=== PATIENT | male | born 1960 | race Caucasian/White ===

== ENCOUNTER 2020-10-13 03:12 | Inpatient (IN) | payer BC, OTHER ==
--- OUTSIDE RECORDS SUMMARY | 2020-10-13 03:14 | XMS REPORT | Clinical Summary ---
:1960 Author Organization [facility] Address [address] [place] [address] Care Team Providers Name Role Phone Rajan Torres MD Primary Care Provider Allergies No Known Active Allergies Medications Medication Sig Dispensed Refills Start Date End Date Status sotalol (BETAPACE) Take 1 tablet 0 11/19/2018 Active 160 MG tablet by mouth 2 (two) times a day. warfarin (COUMADIN) Take 5 mg by 0 10/22/2018 Active 5 MG tablet mouth daily. aspirin (ECOTRIN) Take 81 mg by 0 Active 81 MG enteric mouth daily. coated tablet fluticasone 2 sprays by 0 Active (FLONASE) 50 Each Nare mcg/actuation nasal route as spray needed for rhinitis. loratadine Take 10 mg by 0 Activ e (CLARITIN) 10 mg mouth daily. tablet atorvastatin Take 80 mg by 0 Act bony (LIPITOR) 80 MG mouth daily. tablet pantoprazole Take 40 mg by 0 Act bony (PROTONIX) 40 MG EC mouth daily. tablet ramipril (ALTACE) Take 10 mg by 0 Active 10 MG capsule mouth daily. pioglitazone TAKE 1 TABLET 30 tablet 3 08/28/2020 Ac tive (ACTOS) 30 MG BY MOUTH 1 tablet TIME EACH DAY pioglitazone Take 1 tablet 30 tablet 11 09/19/2019 08/28/2020 D iscontinued (ACTOS) 30 MG (30 mg total) tablet by mouth daily. Active Problems Not on file Encounters Date Type Specialty Care Team Description 08/28/2020 Refill Neurology Alex Davila MD after 10/13/2019 Family History Medical History Relation Name Comments Emphysema Father Heart attack Father Hypertension Mother Scoliosis Mother Relation Name Status Comments Father Mother Alive Social History Tobacco Use Types Packs/Day Years Used Date Former Smoker 3 Quit: 1982 Smokeless Tobacco: Former User Alcohol Use Drinks/Week oz/Week Comments No Alcohol Habits Answer Date Recorded How often do you have a drink containing alcohol? Never 12/12/2018 How many drinks containing alcohol do you have on a typical Not asked day when you are drinking? How often do you have six or more drinks on one occasion? 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
--- OUTSIDE RECORDS SUMMARY | 2020-10-13 03:14 | XMS REPORT | Continuity of Care Document ---
:1960 Author Organization [facility] t Address [address] [place] [address] Care Team Providers Name Role Phone Brian DE LA CRUZ, J. Primary Care Physician Lola DE LA CRUZ Attending Clinician Payers Payer Name Policy Type Policy Effective Date Expiration Date [facility] ce Number BCBSBCBS CHOICE [id number] 2015 [place] PPO/FEDERAL 00:00:00 Yarsanism EMPL [id number] 2015-Pres[place] tPPO Problems This patient has no known problems. Allergies, Adverse Reactions, Alerts This patient has no known allergies or adverse reactions. Family History Family Member Diagnosis Comments Start Date Stop Date Source Natural father Emphysema [facility] Natural father Heart attack [place] Yarsanism Natural mother Hypertension [place] Yarsanism Natural mother Scoliosis [facility] Social History Social Habit Start Date Stop Date Quantity Comments Source History of tobacco Current smoker [facility] Yarsanism use History [facility] Meth odist Alcohol Std Drinks History [facility] Meth odist Alcohol Binge Sex Assigned At [facility] ethodist Tobacco use and 2019-03-20 2019-03-20 Former user [place] Yarsanism exposure 00:00:00 00:00:00 Alcohol intake 2019-03-20 2019-03-20 Current [facility] 00:00:00 00:00:00 non-drinker of alcohol (finding) History SDNM 2018-12-12 2018-12-12 1 [place] [facility] Alcohol Frequency 00:00:00 00:00:00 Smoking Status Start Date Stop Date Source Former smoker 2019-03-20 00:00:00 2019-03-20 00:00:00 Denzel Clark Medications Ordered Filled Start Stop Current Ordering Indication Dosage Frequency Signature Comments Components Source Medication Medication Date Date Medication? Clinician (SIG) Name Name monique 2019-11 Yes TAKE 1 [place] (ACTOS) 0-02 TABLET BY Metho di 30 MG 00:00: MOUTH 1 st tablet 00 TIME EACH DAY aspirin 2018-11 Yes 81mg QD Take 81 mg [place] (ECOTRIN) 0-24 by mouth Method i 81 MG 09:31: daily. st enteric 19 coated tablet fluticasone 2018-11 Yes 2{spray 2 sprays [place] (FLONASE) 0-24 } by Each Methodi 50 09:31: Nare route st mcg/actuati 19 as needed on nasal for spray rhinitis. loratadine 2018-11 Yes 10mg QD Take 10 mg [place] (CLARITIN) 0-24 by mouth Metho di 10 mg 09:31: daily. st tablet 19 atorvastati 2018-11 Yes 80mg QD Take 80 mg [place] n (LIPITOR) 0-24 by mouth Meth caitlin 80 MG 09:31: daily. st tablet 19 pantoprazol 2018-11 Yes 40mg QD Take 40 mg [place] e 0-24 by mouth Methodi (PROTONIX) 09:31: daily. st 40 MG EC 19 tablet ramipril 2018-11 Yes 10mg QD Take 10 mg [place] (ALTACE) 10 0-24 by mouth Meth caitlin MG capsule 09:31: daily. st 19 pioglitazon 2018-11 2020- No 30mg QD Take 1 [place] e (ACTOS) 0-24 10-02 tablet (30 Met hodi 30 MG 00:00: 00:00 mg total) st tablet 00 :00 by mouth daily. sotalol 2017-11 Yes 1{tbl} Q.5D Take 1 [place] (BETAPACE) 2-24 tablet by Meth caitlin 160 MG 00:00: mouth 2 st tablet 00 (two) times a day. warfarin 2017-11 Yes 5mg QD Take 5 mg [place] (COUMADIN) 1-26 by mouth Metho di 5 MG tablet 00:00: daily. st 00 Procedures This patient has no known procedures. Plan of Care Planned Activity Planned Date Details Comments Source Future Scheduled 2020-06-27 INFLUENZA VACCINE [facility] Yarsanism Test 00:00:00 [code = INFLUENZA VACCINE] Future Scheduled 2012 COLONOSCOPY SCREENING Jeff baltazar Yarsanism Test 00:00:00 [code = COLONOSCOPY SCREENING] Future Scheduled 2012 SHINGLES VACCINES [facility] Test 00:00:00 (#1) [code = SHINGLES VACCINES (#1)] Results Test Description Test Time Test Comments Results Result Comments Source Prothrombin Time and INR 2019-10-23 21:11:19 Test Item Value Reference Range Interpretation Comme nts Prothrombin Time (test code = Prothrombin Time) 43.8 seconds 9.8-13 .4 H INR (test code = INR) 3.6 ratio 0.6-1.2 H Prothrombin Time and [id number] 22:23:47 Test Item Value Reference Range Interpretation Comments Prothrombin Time (test code = 35.8 seconds 9.8-13.4 H Prothrombin Time) INR (test code = INR) 3.0 ratio 0.6-1.2 H Prothrombin Time and [id number] 19:37:16 Test Item Value Reference Range Interpretation Comments Prothrombin Time (test 77.0 seconds 9.8-13.4 H code = Prothrombin Time) INR (test code = INR) 6.3 ratio 0.6-1.2 Critic al results called to Dr. Jacob alva at 09/27/2019 19:37:02 CDT by mxt. Read back and verified? yes Prothrombin Time and [id number] 20:54:22 Test Item Value Reference Range Interpretation Comments Prothrombin Time (test code = 28.4 seconds 9.8-13.4 H Prothrombin Time) INR (test code = INR) 2.4 ratio 0.6-1.2 H Prothrombin Time and [id number] 20:41:58 Test Item Value Reference Range Interpretation Comments Prothrombin Time (test code = 40.7 seconds 9.8-13.4 H Prothrombin Time) INR (test code = INR) 3.4 ratio 0.6-1.2 H Prothrombin Time and [id number] 18:57:08 Test Item Value Reference Range Interpretation Comments Prothrombin Time (test code = 19.8 seconds 9.8-13.4 H Prothrombin Time) INR (test code = INR) 1.7 ratio 0.6-1.2 H Prothrombin Time and [id number] 21:56:46 Test Item Value Reference Range Interpretation Comments Prothrombin Time (test 57.5 seconds 9.8-13.4 H code = Prothrombin Time) INR (test code = INR) 4.7 ratio 0.6-1.2 Critic al results called to Dr. Jacob alva at 08/01/2019 21:56:35 CDT by mxt. Read back and verified? yes Prothrombin Time and [id number] 07:16:10 Test Item Value Reference Range Interpretation Comments Prothrombin Time 59.9 seconds 9.8-13.4 H (test code = Prothrombin Time) INR (test code = INR) 4.9 ratio 0.6-1.2 Critic al results called to Dr. Dang Md at 07/19/2019 07:15 :41 CDT by . Faith d back and verifi ed? [email or web address] Prothrombin Time and [id number] 23:27:47 Test Item Value Reference Range Interpretation Comments Prothrombin Time (test code = 47.9 seconds 9.8-13.4 H Prothrombin Time) INR (test code = INR) 4.0 ratio 0.6-1.2 H Prothrombin Time and [id number] 20:26:32 Test Item Value Reference Range Interpretation Comments Prothrombin Time (test code = 36.1 seconds 9.8-13.4 H Prothrombin Time) INR (test code = INR) 3.0 ratio 0.6-1.2 H Prothrombin Time and [id number] 22:05:03 Test Item Value Reference Range Interpretation Comments Prothrombin Time (test code = 50.9 seconds 9.8-13.4 H Prothrombin Time) INR (test code = INR) 4.2 ratio 0.6-1.2 H Prothrombin Time and [id number] 22:37:19 Test Item Value Reference Range Interpretation Comments Prothrombin Time (test code = 43.1 seconds 9.8-13.4 H Prothrombin Time) INR (test code = INR) 3.6 ratio 0.6-1.2 H Prothrombin Time and [id number] 08:43:30 Test Item Value Reference Range Interpretation Comments Prothrombin Time 57.8 seconds 9.8-13.4 H Collection date/time (test code = has been modifi ed Prothrombin Time) to: 16:55:00. Prev ious collection date/time: 16:55:00. INR (test code = INR) 4.8 ratio 0.6-1.2 Critic al results called to Dr. Jacob alva at 04/25/2019 21:22:45 CDT by mxt. Read back and verified? yesCritical res ults called to Dr. Jacob alva at 04/25/2019 21:22:45 CDT by mxt. Read back and verified? yes Collection date /time has been modifi ed to: 16:55:00. Prev ious collection date/time: 16:55:00. Prothrombin Time and [id number] 21:22:57 Test Item Value Reference Range Interpretation Comments Prothrombin Time (test 57.8 seconds 9.8-13.4 H code = Prothrombin Time) INR (test code = INR) 4.8 ratio 0.6-1.2 Critic al results called to Dr. Jacob alva at 04/25/2019 21:22:45 CDT by mxt. Read back and verified? yes Prothrombin Time and [id number] 20:01:46 Test Item Value Reference Range Interpretation Comments Prothrombin Time (test code = 41.1 seconds 9.8-13.4 H Prothrombin Time) INR (test code = INR) 3.4 ratio 0.6-1.2 H
[2020-10-13] MEDS ORDERED: MORPHINE 4 MG/ML SYR ONE (03:47)
[2020-10-13] MEDS ORDERED: ONDANSETRON 4 MG/2 ML VIAL ONE ×4 (03:47→16:05)
[2020-10-13] MEDS ORDERED: NA CHLORIDE 0.9% 1,000 ML ONE ×4 (03:47→13:26)
[2020-10-13] MEDS ORDERED: FAMOTIDINE 20 MG/2 ML VIAL IV ONE (03:57)
[2020-10-13 04:07] LABS: Protime INR 3.75
[2020-10-13] MEDS ORDERED: HYDROMORPHONE HCL 1 MG/ML INJ ONE (04:11)
[2020-10-13 04:25] LABS: Absolute Lymphocytes (CBC) 2.7 K/uL (0.7-4.9); Basophils % 1.1 % (0-1.3); Hematocrit 44.4 % (39.6-49.0); Lymphocytes % 40.5 % (15.3-44.8); MPV 9.9 fL (7.6-11.3); RBC Red Blood Cell Count 5.07 M/uL (4.33-5.43)
[2020-10-13 04:37] LABS: ALT/SGPT 31 U/L (12-78); AST/SGOT 27 U/L (15-37); Albumin 3.7 g/dL (3.4-5.0); Alkaline Phosphatase 118 U/L (45-117); BUN Blood Urea Nitrogen 15 mg/dL (7-18); Bicarbonate 31 mmol/L (21-32); Bilirubin Direct < 0.1 mg/dL (0-0.2); Bilirubin Total 0.4 mg/dL (0.2-1.0); Glucose Level 131 mg/dL (74-106); Lipase 156 U/L (73-393); NT PRO-BNP 412 pg/mL (<125); Potassium 4.2 mmol/L (3.5-5.1); Protein, Total 7.7 g/dL (6.4-8.2); Sodium Level 141 mmol/L (136-145); Troponin (Emerg Dept Use Only) < 0.02 ng/mL (0.0-0.045)
[2020-10-13] MEDS ORDERED: PROMETHAZINE INJ 25 MG/ML AMP ONE ×2 (04:59→16:14)
[2020-10-13] MEDS ORDERED: HYDROMORPHONE HCL 0.5 MG/0.5 ML INJ ONE (05:34)
--- NOTE | 2020-10-13 06:12 | EDPHYS ---
Physician Documentation [facility] Name: Johan Hu Age: 60 yrs Sex: Male : 1960 Arrival Date: 10/13/2020 Time: 03:15 Bed 7 Private MD: ED Physician Marcus Avila HPI: 10/13 03:37 This 60 yrs old Male presents to ER via Ambulatory with complaints of gary Abdominal Pain. 03:37 The patient presents with abdominal pain in the upper abdomen, abdominal distention in gary the upper abdomen, in the lower abdomen. Onset: The symptoms/episode began/occurred just prior to arrival. The symptoms do not radiate. Associated signs and symptoms: none. The symptoms are described as crampy. Modifying factors: The symptoms are alleviated by nothing, the symptoms are aggravated by nothing. Severity of pain: At its worst the pain was moderate in the emergency department the pain is unchanged. The patient has not experienced similar symptoms in the past. Historical: - Allergies: 03:26 No Known Allergies; rv - PMHx: 03:26 Hypertension; CVA; rv - PSHx: 03:26 HEART VALVE SURGERY; Hernia repair; rv - Immunization history:: Adult Immunizations up to date. - Social history:: Smoking status: Patient denies any tobacco usage or history of. - Family history:: not pertinent. ROS: 03:37 Constitutional: Negative for fever, chills, and weight loss, Eyes: Negative for injury, gary pain, redness, and discharge, ENT: Negative for injury, pain, and discharge, Neck: Negative for injury, pain, and swelling, Cardiovascular: Negative for chest pain, palpitations, and edema, Respiratory: Negative for shortness of breath, cough, wheezing, and pleuritic chest pain, Back: Negative for injury and pain, : Negative for injury, bleeding, discharge, and swelling, MS/Extremity: Negative for injury and deformity, Skin: Negative for injury, rash, and discoloration, Neuro: Negative for headache, weakness, numbness, tingling, and seizure, Psych: Negative for depression, anxiety, suicide ideation, homicidal ideation, and hallucinations, Allergy/Immunology: Negative for hives, rash, and allergies, Endocrine: Negative for neck swelling, polydipsia, polyuria, polyphagia, and marked weight changes, Hematologic/Lymphatic: Negative for swollen nodes, abnormal bleeding, and unusual bruising. 03:37 Abdomen/GI: Positive for abdominal pain, nausea, of the right upper quadrant and left upper quadrant. Exam: 03:37 Constitutional: This is a well developed, well nourished patient who is awake, alert, gary and in no acute distress. Head/Face: Normocephalic, atraumatic. Eyes: Pupils equal round and reactive to light, extra-ocular motions intact. Lids and lashes normal. Conjunctiva and sclera are non-icteric and not injected. Cornea within normal limits. Periorbital areas with no swelling, redness, or edema. ENT: Nares patent. No nasal discharge, no septal abnormalities noted. Tympanic membranes are normal and external auditory canals are clear. Oropharynx with no redness, swelling, or masses, exudates, or evidence of obstruction, uvula midline. Mucous membranes moist. Neck: Trachea midline, no thyromegaly or masses palpated, and no cervical lymphadenopathy. Supple, full range of motion without nuchal rigidity, or vertebral point tenderness. No Meningismus. Chest/axilla: Normal chest wall appearance and motion. Nontender with no deformity. No lesions are appreciated. Cardiovascular: Regular rate and rhythm with a normal S1 and S2. No gallops, murmurs, or rubs. Normal PMI, no JVD. No pulse deficits. Respiratory: Lungs have equal breath sounds bilaterally, clear to auscultation and percussion. No rales, rhonchi or wheezes noted. No increased work of breathing, no retractions or nasal flaring. Back: No spinal tenderness. No costovertebral tenderness. Full range of motion. Male : Normal genitalia with no discharge or lesions. Skin: Warm, dry with normal turgor. Normal color with no rashes, no lesions, and no evidence of cellulitis. MS/ Extremity: Pulses equal, no cyanosis. Neurovascular intact. Full, normal range of motion. Neuro: Awake and alert, GCS 15, oriented to person, place, time, and situation. Cranial nerves II-XII grossly intact. Motor strength 5/5 in all extremities. Sensory grossly intact. Cerebellar exam normal. Normal gait. Psych: Awake, alert, with orientation to person, place and time. Behavior, mood, and affect are within normal limits. 03:37 Abdomen/GI: Inspection: distension, Bowel sounds: active, Palpation: moderate abdominal tenderness, in the right upper quadrant and left upper quadrant. 03:50 ECG was reviewed by the Attending Physician. gary Vital Signs: 03:24 Weight 113.4 kg; Height 6 ft. 3 in. (190.50 cm); rv 03:31 Pulse 75; Resp 20; Temp 97.5; Pulse Ox 100% ; rv 04:39 BP 153 / 93; Pulse 55; Resp 16; Pulse Ox 98% ; rr5 05:26 BP 156 / 93; Pulse 64; Resp 16; Pulse Ox 98% on R/A; rv 06:28 BP 153 / 101; Pulse 65; Resp 16; Pulse Ox 100% on R/A; rv 08:06 BP 116 / 80; Pulse 79; Resp 16; Pulse Ox 98% on R/A; ph 09:29 BP 131 / 80; Pulse 81; Resp 15; Pulse Ox 100% on R/A; hb 03:24 Body Mass Index 31.25 (113.40 kg, 190.50 cm) rv MDM: 03:29 Patient medically screened. gary 03:40 Differential diagnosis: AAA, bowel obstruction, diverticulitis, non-specific abd pain, gary Peptic Ulcer Disease, Perf. Duodenal Ulcer, Perf. Gastric Ulcer, urinary tract infection. Data reviewed: vital signs, nurses notes, lab test result(s), EKG, radiologic studies, CT scan, plain films. 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 Test interpretation: by ED physician or midlevel provider: ECG, plain radiologic studies. Counseling: I had a detailed discussion with the patient and/or guardian regarding: the historical points, exam findings, and any diagnostic results supporting the discharge/admit diagnosis, lab results, radiology results. 06:12 Physician consultation: Francisco Horton MD and will see patient in inpatient room, ABX, gary NO ffp, yes NG to low intermittent suction, admit to me, dr horton. 10/13 03:36 Order name: Basic Metabolic Panel [facility] 10/13 03:36 Order name: CBC with Diff; Complete Time: 04:46 [facility] 10/13 03:36 Order name: LFT's; Complete Time: 04:46 [facility] 10/13 03:36 Order name: Magnesium; Complete Time: 04:46 [facility] 10/13 03:36 Order name: NT PRO-BNP; Complete Time: 04:46 [facility] 10/13 03:36 Order name: PT-INR; Complete Time: 04:46 [facility] 10/13 03:36 Order name: Troponin (emerg Dept Use Only); Complete Time: 04:46 [facility] 10/13 03:36 Order name: XRAY Chest (1 view) [facility] 10/13 03:36 Order name: Lipase; Complete Time: 04:46 [facility] 10/13 03:36 Order name: Urine Culture [facility] 10/13 03:36 Order name: CT Abd/Pelvis - PO and IV Contrast [facility] 10/13 03:37 Order name: Basic Metabolic Panel; Complete Time: 04:46 [facility] 10/13 06:01 Order name: Type And Screen; Complete Time: 07:45 [facility] 10/13 09:34 Order name: ABO/RH no charge [facility] 10/13 03:36 Order name: EKG; Complete Time: 03:37 [facility] 10/13 03:36 Order name: Cardiac monitoring; Complete Time: 03:42 [facility] 10/13 06:38 Order name: Abdomen 1 View (KUB) XRAY [facility] 10/13 07:50 Order name: RAD [facility] 10/13 03:36 Order name: IV Saline Lock; Complete Time: 03:42 [facility] 10/13 03:36 Order name: Labs collected and sent; Complete Time: 03:41 [facility] 10/13 03:36 Order name: O2 Per Protocol; Complete Time: 03:41 [facility] 10/13 03:36 Order name: O2 Sat Monitoring; Complete Time: 03:41 [facility] 10/13 06:07 Order name: NG Tube: viscus lidocaine, lis; Complete Time: 06:19 [facility] 10/13 06:26 Order name: IV Saline Lock - Large Bore; Complete Time: 06:29 [facility] 10/13 07:18 Order name: Labs - recollect needed: collect abo/rh no charge; Complete Time: 08:54 10/13 07:44 Order name: Misc. Order: advance ng tube 10 cm; Complete Time: 08:54 [facility] EC:50 Rate is 56 beats/min. Rhythm is regular. QRS [place] is Normal. CT interval is normal. QRS gary interval is normal. QT interval is normal. No Q waves. T waves are Normal. No ST changes noted. Clinical impression: Sinus bradycardia and No evidence of ischemia. Interpreted by me. Reviewed by me. Administered Medications: 03:41 Drug: NS 0.9% 1000 ml Route: IV; Rate: 1 bolus; Site: right antecubital; rv 05:24 Follow up: IV Status: Completed infusion; IV Intake: 1000ml rv 03:41 Drug: morphine 4 mg {Note: RASS 0.} Route: IVP; Site: right antecubital; rv 05:23 Follow up: Response: No adverse reaction; Pain is unchanged, physician notified; RASS: rv Alert and Calm (0) 03:41 Drug: Zofran (Ondansetron) 4 mg Route: IVP; Site: right antecubital; rv 05:23 Follow up: Response: No adverse reaction; Nausea unchanged rv 03:45 Drug: Pepcid 20 mg Route: IVP; Site: right antecubital; rv 04:00 Drug: Zofran (Ondansetron) 4 mg Route: IVP; Site: right antecubital; rv 05:23 Follow up: Response: Nausea unchanged rv 04:00 Drug: Dilaudid 1 mg {Note: RASS 0.} Route: IVP; Site: right antecubital; rv 05:23 Follow up: Response: No adverse reaction; Pain is decreased; RASS: Alert and Calm (0) rv 04:44 Drug: NS 0.9% 1000 ml Route: IV; Rate: 1 bolus; Site: right antecubital; rv 06:29 Follow up: IV Status: Completed infusion; IV Intake: 1000ml rv 04:48 Drug: Phenergan 12.5 mg Route: IVP; Site: right antecubital; rv 05:24 Follow up: Response: No adverse reaction; Nausea is decreased rv 05:23 Drug: Dilaudid 0.5 mg Route: IVP; Site: right antecubital; rv 06:29 Follow up: Response: No adverse reaction; Marked relief of symptoms; Pain is decreased; rv RASS: Light sedation (-2) 06:21 Drug: Zosyn 3.375 grams Route: IVPB; Infused Over: 60 mins; Site: right antecubital; rv 06:29 Drug: NS 0.9% 1000 ml Route: IV; Rate: 125 ml/hr; Site: right antecubital; rv Disposition: 10/13/20 06:12 Hospitalization ordered by Francisco Horton for Inpatient Admission. Preliminary diagnosis are Other intestinal obstruction - high grade small bowel obstruction, internal hernia,ischemic bowel, Lower abdominal pain, unspecified, Coagulation defect, unspecified - coumadin toxic 3.75 INR. - Bed requested for DAY SURGERY OTHER. - Status is Inpatient Admission. hb - Condition is Fair. - Problem is new. - Symptoms are unchanged. Signatures: Dispatcher [employer] EDMS Radha Montelongo bd Marcus Avila MD MD cha Baxter, Heather, RN RN Mikey Bennett RN RN rv Corrections: (The following items were deleted from the chart) 09:01 06:12 Hospitalization Ordered by Francisco Horton MD for Inpatient Admission. Preliminary bd diagnosis is Other intestinal obstruction - high grade small bowel obstruction, internal hernia,ischemic bowel; Lower abdominal pain, unspecified; Coagulation defect, unspecified - coumadin toxic 3.75 INR. Bed requested for Telemetry/MedSurg (Inpatient). Status is Inpatient Admission. Condition is Fair. Problem is new. Symptoms are unchanged. gary 09:55 09:01 10/13/2020 06:12 Hospitalization Ordered by Francisco Horton MD for Inpatient bd Admission. Preliminary diagnosis is Other intestinal obstruction - high grade small bowel obstruction, internal hernia,ischemic bowel; Lower abdominal pain, unspecified; Coagulation defect, unspecified - coumadin toxic 3.75 INR. Bed requested for [facility] ER HOLD. Status is Inpatient Admission. Condition is Fair. Problem is new. Symptoms are unchanged. bd 09:56 09:55 10/13/2020 06:12 Hospitalization Ordered by Francisco Horton MD for Inpatient hb Admission. Preliminary diagnosis is Other intestinal obstruction - high grade small bowel obstruction, internal hernia,ischemic bowel; Lower abdominal pain, unspecified; Coagulation defect, unspecified - coumadin toxic 3.75 INR. Bed requested for DAY SURGERY OTHER. Status is Inpatient Admission. Condition is Fair. Problem is new. Symptoms are unchanged. bd
--- NOTE | 2020-10-13 06:12 | ER ---
Nurse's Notes [facility] Name: Johan Hu Age: 60 yrs Sex: Male : 1960 Arrival Date: 10/13/2020 Time: 03:15 Bed 7 Private MD: Diagnosis: Other intestinal obstruction-high grade small bowel obstruction, internal hernia,ischemic bowel;Lower abdominal pain, unspecified;Coagulation defect, unspecified-coumadin toxic 3.75 INR Presentation: 10/13 03:24 Chief complaint: Patient states: ABDOMINAL PAIN, EPIGASTRIC AREA. WOKE UP AT 0230, WITH rv KNIFE LIKE PAIN, ABDOMEN, WITH NAUSEA AND VOMITING. DENIES FEVER, COUGH. Coronavirus screen: Client denies travel out of the [place] in the last 14 days. Coronavirus screen: At this time, the client does not indicate any symptoms associated with coronavirus-19. Ebola Screen: No symptoms or risks identified at this time. Initial Sepsis Screen: Does the patient meet any 2 criteria?. Risk Assessment: Do you want to hurt yourself or someone else? Patient reports no desire to harm self or others. Onset of symptoms was October 13, 2020 at 02:30. 03:24 Method Of Arrival: Ambulatory rv 03:24 Acuity: NADJA 3 rv 05:26 Initial Sepsis Screen: Does the patient have a suspected source of infection? No. rv Patient's initial sepsis screen is negative. Triage Assessment: 03:26 General: Appears uncomfortable, Behavior is calm, cooperative. Pain: Complains of pain rv in abdomen. Pain: Quality of pain is described as sharp, stabbing. EENT: No signs and/or symptoms were reported regarding the EENT system. Neuro: Level of Consciousness is awake, alert, obeys commands, Oriented to person, place, time, situation. Cardiovascular: Patient's skin is warm and dry. Respiratory: Airway is patent Respiratory effort is even, unlabored, Breath sounds are clear bilaterally. GI: Abdomen is round non-distended, Pt is actively vomiting bile, Bowel sounds present X 4 quads. Derm: Skin is intact. Historical: - Allergies: 03:26 No Known Allergies; rv - PMHx: 03:26 Hypertension; CVA; rv - PSHx: 03:26 HEART VALVE SURGERY; Hernia repair; rv - Immunization history:: Adult Immunizations up to date. - Social history:: Smoking status: Patient denies any tobacco usage or history of. - Family history:: not pertinent. Screenin:27 Abuse screen: Denies threats or abuse. Denies injuries from another. Nutritional rv screening: No deficits noted. Tuberculosis screening: No symptoms or risk factors identified. Fall Risk None identified. Assessment: 03:28 GI: Abd is soft and non tender X 4 quads. rv 05:24 Reassessment: patient is back from CT scan. reassessed by Dr Avila at bedside. rv nausea decreased. pain is unchanged. received new orders. awaiting CT scan result. given Dilaudid as ordered. patient is comfortable laying on the bed. vital signs stable. 07:00 Reassessment: Patient appears in no apparent distress at this time. Patient and/or ph family updated on plan of care and expected duration. Pain level reassessed. Patient is alert, oriented x 3, equal unlabored respirations, skin warm/dry/pink. Family at bedside. 08:00 Reassessment: Patient appears in no apparent distress at this time. Patient and/or hb family updated on plan of care and expected duration. Pain level reassessed. Patient is alert, oriented x 3, equal unlabored respirations, skin warm/dry/pink. 09:00 Reassessment: Patient appears in no apparent distress at this time. Patient and/or hb family updated on plan of care and expected duration. Pain level reassessed. Patient is alert, oriented x 3, equal unlabored respirations, skin warm/dry/pink. 09:01 Reassessment: Dr. Herrera at bedside. hb Vital Signs: 03:24 Weight 113.4 kg; Height 6 ft. 3 in. (190.50 cm); rv 03:31 Pulse 75; Resp 20; Temp 97.5; Pulse Ox 100% ; rv 04:39 BP 153 / 93; Pulse 55; Resp 16; Pulse Ox 98% ; rr5 05:26 BP 156 / 93; Pulse 64; Resp 16; Pulse Ox 98% on R/A; rv 06:28 BP 153 / 101; Pulse 65; Resp 16; Pulse Ox 100% on R/A; rv 08:06 BP 116 / 80; Pulse 79; Resp 16; Pulse Ox 98% on R/A; ph 09:29 BP 131 / 80; Pulse 81; Resp 15; Pulse Ox 100% on R/A; hb 03:24 Body Mass Index 31.25 (113.40 kg, 190.50 cm) rv ED Course: 03:15 Patient arrived in ED. mr 03:18 Mikey Bennett, RN is Primary Nurse. rv 03:25 Triage completed. rv 03:27 Arm band placed on right wrist. Patient placed in the treatment room, on a stretcher, rv Patient notified of wait time. 03:28 Patient has correct armband on for positive identification. Placed in gown. Bed in low rv position. Call light in reach. Side rails up X 1. Pulse ox on. NIBP on. 03:29 Marcus Avila MD is Attending Physician. gary 03:30 Inserted saline lock: 20 gauge in right antecubital area, using aseptic technique. [id number] Blood collected. 05:31 CT Abd/Pelvis - PO and IV Contrast In Process Unspecified. EDMS 06:08 Francisco Herrera MD is Hospitalizing Provider. gary 06:09 XRAY Chest (1 view) In Process Unspecified. EDMS 06:22 NGT: inserted 14 Fr. via right nare. verified placement of air over stomach, verified rv return of gastric contents, to intermittent suction. Patient tolerated well. Administered Medications: 03:41 Drug: NS 0.9% 1000 ml Route: IV; Rate: 1 bolus; Site: right antecubital; rv 05:24 Follow up: IV Status: Completed infusion; IV Intake: 1000ml rv 03:41 Drug: morphine 4 mg {Note: RASS 0.} Route: IVP; Site: right antecubital; rv 05:23 Follow up: Response: No adverse reaction; Pain is unchanged, physician notified; RASS: rv Alert and Calm (0) 03:41 Drug: Zofran (Ondansetron) 4 mg Route: IVP; Site: right antecubital; rv 05:23 Follow up: Response: No adverse reaction; Nausea unchanged rv 03:45 Drug: Pepcid 20 mg Route: IVP; Site: right antecubital; rv 04:00 Drug: Zofran (Ondansetron) 4 mg Route: IVP; Site: right antecubital; rv 05:23 Follow up: Response: Nausea unchanged rv 04:00 Drug: Dilaudid 1 mg {Note: RASS 0.} Route: IVP; Site: right antecubital; rv 05:23 Follow up: Response: No adverse reaction; Pain is decreased; RASS: Alert and Calm (0) rv 04:44 Drug: NS 0.9% 1000 ml Route: IV; Rate: 1 bolus; Site: right antecubital; rv 06:29 Follow up: IV Status: Completed infusion; IV Intake: 1000ml rv 04:48 Drug: Phenergan 12.5 mg Route: IVP; Site: right antecubital; rv 05:24 Follow up: Response: No adverse reaction; Nausea is decreased rv 05:23 Drug: Dilaudid 0.5 mg Route: IVP; Site: right antecubital; rv 06:29 Follow up: Response: No adverse reaction; Marked relief of symptoms; Pain is decreased; rv RASS: Light sedation (-2) 06:21 Drug: Zosyn 3.375 grams Route: IVPB; Infused Over: 60 mins; Site: right antecubital; rv 06:29 Drug: NS 0.9% 1000 ml Route: IV; Rate: 125 ml/hr; Site: right antecubital; rv Intake: 05:24 IV: 1000ml; Total: 1000ml. rv 06:29 IV: 1000ml; Total: 2000ml. rv Outcome: 06:12 Decision to Hospitalize by Provider. [facility] 09:56 Patient left the ED. Signatures: Dispatcher [employer] Marcus Rollins MD MD cha Rivera, Julia mr BrantleyJessica RN RN Roya Henderson RN RN Lakshmi Hoffman [email or web address] Mikey Bennett RN RN Felipe Vasquez RN RN [id number]
[2020-10-13] MEDS ORDERED: LIDOCAINE VISCOUS 2% SOLN 15 ML UDC ONE (06:22)
[2020-10-13] MEDS ORDERED: PIPER/TAZO/NS 3.375gm 3.375 GM/100 ML BAG ONE ×2 (06:33→17:56)
--- NOTE | 2020-10-13 07:49 | RAD REPORT ---
EXAM DESCRIPTION: RAD - Abdomen 1 View (KUB) - 10/13/2020 7:38 am CLINICAL HISTORY: ng placement;Abd pain COMPARISON: Abdomen Pelvis W Contrast dated 10/13/2020 FINDINGS: Exam has motion degradation limitations. Nasogastric tube has been placed. Tip of the tube is proximal stomach. IMPRESSION: Tip of the NG tube extends into the proximal stomach.
--- NOTE | 2020-10-13 08:16 | RAD REPORT ---
EXAM DESCRIPTION: RAD - Chest Single View - 10/13/2020 6:08 am CLINICAL HISTORY: ABDOMINAL DISTENTION COMPARISON: None TECHNIQUE: AP portable chest image was obtained 10/13/2020 6:08 am . FINDINGS: Lung volumes are low. Low lung volumes and large body habitus accentuate chest findings. S ternotomy wires are in place. Defibrillator in place via left subclavian approach. No focal mass or consolidation. No significant failure or volume overload identified. Heart and vascu lature are normal. No measurable pleural effusion and no pneumothorax. No acute bony abnormality seen . No acute aortic findings suspected. IMPRESSION: No acute cardiopulmonary process.
[2020-10-13] MEDS ORDERED: HYDROMORPHONE HCL 1 MG/ML INJ IV PRN (09:31)
[2020-10-13] MEDS ORDERED: SODIUM CHLORIDE 0.9% 10ML INJ IV PRN (09:31)
[2020-10-13] MEDS: PANTOPRAZOLE 40 MG INJ IVP SCH (09:31)
[2020-10-13] MEDS ORDERED: ONDANSETRON 4 MG/2 ML VIAL IV PRN ×2 (09:31→15:32)
[2020-10-13] MEDS: Ringers Lactate 1,000 ML IV SCH ×2 (09:31→17:19)
[2020-10-13] MEDS ORDERED: ACETAMINOPHEN 325 MG TABLET PO PRN (09:31)
--- NOTE | 2020-10-13 10:46 | RAD REPORT ---
EXAM DESCRIPTION: CT - Abdomen Pelvis W Contrast - 10/13/2020 6:39 am ADDENDUM #1 THIS REPORT CONTAINS FINDINGS THAT MAY BE CRITICAL TO PATIENT CARE: The findings were verbally discussed via telephone conference with Dr. Marcus Avila by Dr. Kirsten Wheat on 12/13/2019 5:53 AM CAFE AIDE .The results were acknowledged and understood. Electronically signed by: Letty Wheat MD 10/13/2020 6:27 AM CAFE AIDE End of Addendum EXAM DESCRIPTION: CT Abdomen and Pelvis With Intravenous Contrast CLINICAL HISTORY: The patient is 60 years old and is Male; ABD PAIN TECHNIQUE: Axial computed tomography images of the abdomen and pelvis with intravenous contrast. S agittal and coronal reformatted images were created and reviewed. This CT exam was performed using one or more of the following dose reduction techniques: automated exposure control, adjustment of t he mA and/or kV according to patient size, and/or use of iterative reconstruction technique. COMPARISON: No relevant prior studies available. FINDINGS: ARTIFACTS: The exam is suboptimal secondary to motion artifact. LUNG BASES: Unremarkable. No mass. No consolidation. HEART: The heart is enlarged. ABDOMEN: LIVER: Unremarkable. No mass. GALLBLADDER AND BILE DUCTS: Surgical clips are present in the right upper quadrant, consistent wi th previous cholecystectomy. PANCREAS: No ductal dilation. No mass. SPLEEN: Unremarkable. ADRENALS: Unremarkable. No mass. KIDNEYS AND URETERS: Unremarkable. The kidneys enhance symmetrically. No obstructing renal or ure teral calculus is seen. No hydronephrosis or hydroureter. No perinephric fluid or stranding. STOMACH AND BOWEL: Oral contrast is present within the stomach. Several inflamed fluid-filled dil ated small bowel loops in the right lower quadrant are present. There is associated edema of the cent ral mesentery in this region with associated mild swirling. The remainder the small bowel is normal i n caliber. A moderate amount of stool is present throughout colon. Scattered colonic diverticula are present. PELVIS: APPENDIX: The appendix is normal in caliber without surrounding inflammation. BLADDER: Unremarkable. No mass. REPRODUCTIVE: Unremarkable as visualized. ABDOMEN and PELVIS: INTRAPERITONEAL SPACE: Free fluid is noted tracking down the paracolic gutter on the right into t he pelvis. No free air. BONES/JOINTS: No acute fracture. SOFT TISSUES: The soft tissues are normal. VASCULATURE: Unremarkable. No abdominal aortic aneurysm. LYMPH NODES: Unremarkable. No enlarged lymph nodes. IMPRESSION: Findings suggest a high-grade small bowel obstruction involving small bowel in the right lower quadrant. The obstruction is likely secondary to an internal hernia. The appearance of the bow el raises concern for ischemia. Electronically signed by: Letty Wheat MD 10/13/2020 5:44 AM CAFE AIDE Due to temporary technical issues with the PACS/Fluency reporting system, reports are being signed by the in house radiologists without review as a courtesy to insure prompt reporting. The interpreting radiologist is fully responsible for the content of the report.
[2020-10-13] MEDS: PIPER/TAZO/NS 3.375gm 3.375 GM/100 ML BAG IVPB SCH ×2 (12:00→17:54)
[2020-10-13] MEDS ORDERED: propofoL 200 MG/20 ML VIAL IV ONE (12:24)
[2020-10-13] MEDS ORDERED: ROCURONIUM 50 MG/5 ML VIAL IV ONE ×2 (12:24→14:09)
[2020-10-13] MEDS ORDERED: FENTANYL CITR 100 MCG/2 ML ONE ×2 (12:24→13:39)
[2020-10-13] MEDS ORDERED: LIDOCAINE 1% MPF 5 ML VIAL ONE (12:25)
[2020-10-13] MEDS ORDERED: MIDAZOLAM HCL 2 MG/2 ML INJ ONE (12:25)
--- NOTE | 2020-10-13 12:36 | P.HP ---
Date of Service: 10/13/20 PC: This 60-year-old male presents emergency room with sudden onset of severe lower abdominal pain for diagnosis and treatment. HPC: Patient had been at home, actually was asleep when he was woken suddenly with severe abdominal pain. Went to the restroom early passing gas. Pain was not relieved. He says he could hardly stand up the pain was so intense, he called ambulance and came to the emergency room. Not associated with any nausea, vomiting or diarrhea. Never had a pain like this before. PMH: Hypertension, stroke a number of years ago, followed by Dr. Garcia in [place] PSHx: Previous heart valve surgery, hiatal hernia repair. SOC: No known allergies, has been on blood thinners. SYS REVIEW: Awake alert vital signs are stable O/E awake alert comfortable at the moment HEENT: Nasogastric tube in place and working, only 200 cc in the canister Chest: Chest movement equal bilaterally ABD: Soft nontender minimal amount of guarding or rebound LOCO: Intact DATA: CT scan suggests high-grade bowel obstruction right lower quadrant with congestion IMPRESSION: Internal hernia with high-grade obstruction PLAN: I will take him the operating room for laparoscopy. At that time we will determine exactly what the pathology is, where it is located, and the viability of the bowel . At that point we will decide how best to proceed. I have explained to the patient that sometimes an open procedure is required. Bowel resection, lysis of adhesions, ostomies were discussed. The possibility of infection, abscess formation, fistulas were described. He understands and wants us to proceed. Waiting for the OR.
[2020-10-13] MEDS ORDERED: SUCCINYLCHOLINE 20 MG/ML (10 ML) IV ONE (12:49)
[2020-10-13] MEDS ORDERED: EPHEDRINE SULF 50 MG/ML VIAL ONE (13:20)
[2020-10-13] MEDS ORDERED: NS 0.9% VIAL 10 ML ONE ×2 (13:20→13:31)
[2020-10-13] MEDS ORDERED: NA CHLORIDE 0.9% 100 ML IV ONE (13:28)
[2020-10-13] MEDS ORDERED: Phenylephrine HCl 10 MG/ML 1 ML VIAL ONE ×2 (13:29→13:30)
[2020-10-13] MEDS ORDERED: KETOROLAC 30 MG/ML INJ ONE (13:49)
[2020-10-13] MEDS ORDERED: dexAMETHasone 10 MG/ML VIAL ONE (13:49)
[2020-10-13] MEDS ORDERED: GLYCOPYRROLATE 0.2 MG/ML SYR ONE (14:51)
--- NOTE | 2020-10-13 14:53 | P.OP ---
Preoperative diagnosis: High-grade obstruction small-bowel Postoperative diagnosis: Vascular compromise of the small bowel Primary procedure: Exploratory laparotomy, small-bowel resection Secondary procedure: With [id number] functional end-to-end anastomosis of small bowel Other procedure(s): Laparoscopy Anesthesia: General Estimated blood loss: Less than 50 cc Specimen: Small-bowel Findings: Vascular compromise of a 14 inch of the small bowel Operative Technique: The patient was brought to the operating room and placed supine on the table. After the induction of adequate general endotracheal anesthesia, there the abdomen was prepped with a DuraPrep solution and he was draped in usual aseptic manner. A Galloway catheter had been aseptically inserted. A left upper quadrant skin incision was made. This brought down through the skin and subcutaneous tissue. The Visiport was now used to enter the peritoneal cavity and created pneumoperitoneum to approximately 12 mm of mercury. We could visualize the small bowel. It was immediately apparent that there was area of vascular compromise. A 5 mm trocar was placed in left lower quadrant, and another 5 mm trocar the right upper quadrant. We were now able to gently retract back the omentum. The small bowel became visible. We Dc approximately 10 inches distal to the ligament of Treitz, an area of obvious transition in to markedly congested of small bowel. This area extended for per further 14 inches. At which point the bowel returned to its normal color consistency and character. It is obvious that this area of bowel was compromise and was nonviable. We sized it to see if they could be done laparoscopically and brought to the anterior abdominal wall. The proximal limb was going to be short. Hence we converted to exploratory laparotomy. A midline incision was made. We were able to do this under direct vision with the scope in place to ensure we had no injury to any of the intestinal contents. The midline having been opened and the bowel was now grasped. We were able to bring it up to our incision easily. Assessing this we could see that the S of the appear to be congested but viable there was some distal portions that showed acute congestion with serous fluid on the surface. The bowel was resected 2 inches proximal to the juncture of the live with that interface. This was done on both the proximal and distal limbs. A [id number] now functional end-to-end anastomosis was then constructed using the 75 JOHANNA. Multiple reloads were used. This pus was now handed off the field. The mesenteric defect was approximated using a running suture of chromic. The anastomosis was gently reinforced with the same. We could see that there was gentle oozing from our suture line but no obvious bleeding. The abdomen was now irrigated with a copious amount of saline solution. The intestines were returned to their normal anatomical position. The omentum was laid down on top of the intestines. The midline incision was now closed with Surgidac in the lower portion the abdomen up to the emboli kiss and then overlapped with a running suture of 2 0 nylon. The anterior abdominal wall was blocked with 0.25% Marcaine applied to the skin. At the end of the procedure he was in a stable condition when sent to the recovery room. Needle sponge instrument count were correct. We left the Galloway catheter in place and will remove it 1st thing in the morning. He appears to be slightly behind in fluids and we can monitor his urine output. Complications: None Drain(s): Urinary catheter Transferred to: Recovery Room Condition: Good
[2020-10-13] MEDS ORDERED: NEOSTIGMINE 1 MG/ML -5 ML ONE (14:59)
[2020-10-13] MEDS: MEPERIDINE HCL 25 MG/ML SYR ONE ×2 (15:00→15:45)
[2020-10-13] MEDS: ONDANSETRON 4 MG/2 ML VIAL ONE ×2 (15:30→15:50)
[2020-10-13] MEDS: HYDROMORPHONE HCL 1 MG/ML INJ ONE ×4 (15:30→16:00)
[2020-10-13] MEDS ORDERED: MORPHINE 4 MG/ML SYR IV PRN (15:32)
[2020-10-13] MEDS ORDERED: Ringers Lactate 1,000 ML IV ONE (15:40)
[2020-10-13 17:08] VITALS: BMI 31.2
[2020-10-13] MEDS ORDERED: INFLUENZA VACCINE (for 3y+) 0.5 ML DOSE IMVAC ONE (20:00)
[2020-10-14] MEDS: Ringers Lactate 1,000 ML IV SCH ×3 (00:50→17:31)
[2020-10-14] MEDS ORDERED: PIPER/TAZO/NS 3.375gm 3.375 GM/100 ML BAG ONE (01:40)
[2020-10-14] MEDS: PIPER/TAZO/NS 3.375gm 3.375 GM/100 ML BAG IVPB SCH ×3 (01:46→17:13)
[2020-10-14 04:06] LABS: Absolute Lymphocytes (CBC) 1.6 K/uL (0.7-4.9); Basophils % 0.2 % (0-1.3); Hematocrit 33.5 % (39.6-49.0); Lymphocytes % 15.5 % (15.3-44.8); MPV 10.2 fL (7.6-11.3); RBC Red Blood Cell Count 3.81 M/uL (4.33-5.43)
[2020-10-14 04:22] LABS: Albumin 2.4 g/dL (3.4-5.0); Bilirubin Direct 0.1 mg/dL (0-0.2); Bilirubin Total 0.7 mg/dL (0.2-1.0); Potassium 5.1 mmol/L (3.5-5.1); Protein, Total 5.2 g/dL (6.4-8.2)
--- NOTE | 2020-10-14 07:19 | EKG ---
Test Date: 2020-10-13 Test Time: 03:46:49 Drop Hammer Setter Up: MEREDITH MEASUREMENT RESULTS: Intervals: Rate: 56 VT: 292 QRSD: 88 QT: 470 QTc: 453 [place]: P: 25 VT: 292 QRS: 38 T: 53 INTERPRETIVE STATEMENTS: Sinus bradycardia with 1st degree AV block Otherwise normal ECG Compared to ECG 11/25/1999 23:53:00 First degree AV block now present Sinus rhythm no longer present Early repolarization no longer present Electronically Signed On 10-14-20 07:17:46 LOCAL OPERATOR by Shubham House
[2020-10-14] MEDS ORDERED: NA CHLORIDE 0.9% 500 ML IV ONE ×2 (07:48→09:57)
[2020-10-14] MEDS: PANTOPRAZOLE 40 MG INJ IVP SCH (08:05)
[2020-10-14] MEDS ORDERED: ALBUMIN HUMAN 25% 100 ML IV ONE (10:00)
[2020-10-14] MEDS ORDERED: NA CHLORIDE 0.9% 250 ML IV ONE ×2 (12:17→17:00)
[2020-10-14] MEDS: SOTALOL HCL 80 MG TAB PO SCH ×2 (13:22→23:00)
[2020-10-14 14:22] LABS: Absolute Lymphocytes (CBC) 2.1 K/uL (0.7-4.9); Basophils % 0.2 % (0-1.3); Hematocrit 27.3 % (39.6-49.0); Lymphocytes % 15.6 % (15.3-44.8); MPV 9.9 fL (7.6-11.3); RBC Red Blood Cell Count 3.11 M/uL (4.33-5.43)
[2020-10-14 14:42] LABS: Magnesium 1.7 mg/dL (1.8-2.4); Phosphorus 3.9 mg/dL (2.5-4.9); Potassium 4.4 mmol/L (3.5-5.1); Troponin I 0.31 ng/mL (0.0-0.045)
[2020-10-14] MEDS ORDERED: SOTALOL HCL 80 MG TAB PO ONE (15:00)
[2020-10-14] MEDS ORDERED: MINERAL OIL 30 ML UCUP FT ONE (15:00)
--- NOTE | 2020-10-14 15:14 | P.PN ---
Date of Service: 10/14/20 S: Patient feels well today, complaining about the nasogastric tube. Also anxious to get his Galloway catheter out. States that he feels better than he did yesterday. O: Was mildly hypotensive this morning. Responded to fluid bolus. Has had borderline urine output. Minimal out through the nasogastric tube. Incisions are clean. Hemoglobin at 10 today. A: Surgically stable status post exploratory laparotomy for infarcted small bowel. P: Will Dc the NG tube today. We will leave the Galloway catheter 1 more day until it is more hemodynamically stable. I believe he was behind in fluids prior to this surgery, we have not quite caught up with him yet. Will repeat is hemoglobin hematocrit in the morning. I have requested that the hospitalist to the patient regards to his medical management. I also put in a request for it echo to evaluate his heart status. The family is comfortable with this plan.
--- NOTE | 2020-10-14 16:06 | P.CNS ---
Date of Consult: 10/13/20 Reason for Consult: MEDICAL MANAGEMENT Requesting Physician: Francisco Herrera Primary Care Provider: YURIDIA Chief Complaint: Small-bowel obstruction/ischemic enteritis History of Present Illness: Patient is a 52-year-old gentleman who came to the hospital with abdominal pain. Patient was having nausea and vomiting. He came into the emergency room and was found have a small-bowel obstruction secondary to ischemic enteritis. Patient was taken to the OR and surgeon was performed. Patient had a partial small- bowel resection with anastomosis. Patient tolerated the procedure fairly well. Patient was brought up to the floor and I was Consulted for medical management. Patient has a history of Coronary artery disease with defibrillator placement. Patient also has a loop recorder. Patient has not required any further intervention. He has not met criteria for a pacemaker. He does not have any fluid overload and his last echocardiogram revealed a ejection fraction of 60%. At this time patient be admitted to the hospital for further evaluation. Allergies No Known Allergies Allergy (Unverified 10/13/20 09:30) Home Medications: Atorvastatin Calcium [Lipitor] 80 mg PO BEDTIME 10/13/20 Losartan Potassium 50 mg PO BEDTIME 10/13/20 Pantoprazole [Protonix Tab] 40 mg PO BEDTIME 10/13/20 Pioglitazone [Actos] 15 mg PO BEDTIME 10/13/20 Sotalol HCl [Sotalol] 160 mg PO BID 10/13/20 Warfarin Sodium 5 mg PO BEDTIME 10/13/20 ramipriL [Ramipril] 10 mg PO DAILY 10/13/20 - Past Medical/Surgical History Diabetic: No -: HTN -: CVA -: defibrillator -: Heart mitral valve repair -: Hernia repair - Family History Father Family History: Reviewed- Non-Contributory - Social History Alcohol use: No CD- Drugs: No Caffeine use: No Place of Residence: Home Review of Systems 10-point ROS is otherwise unremarkable Physical Examination Temp Pulse Resp BP Pulse Ox 96.4 F L 115 H 18 103/56 L 95 10/14/20 12:00 10/14/20 12:14 10/14/20 12:00 10/14/20 12:14 10/14/20 12:00 General: Alert, In no apparent distress, Oriented x3 HEENT: Other (NGT) Respiratory: Clear to auscultation bilaterally Cardiovascular: Regular rate/rhythm, No murmurs Gastrointestinal: Normal bowel sounds, Soft and benign, Distended, Tenderness (appropriately post surgical minimal) Musculoskeletal: No clubbing, No swelling Neurological: Normal gait, Normal speech, Normal strength at 5/5 x4 extr, Normal tone, Sensation intact, Cranial nerves 3-12 intact Urinary: Galloway catheter - Problems (1) Ischemic enteritis Current Visit: Yes Status: Acute (2) S/P small bowel resection Current Visit: Yes Status: Acute (3) Atrial fibrillation Current Visit: Yes Status: Acute (4) CAD (coronary artery disease) Current Visit: Yes Status: Acute (5) DM2 (diabetes mellitus, type 2) Current Visit: Yes Status: Acute (6) HTN (hypertension) Current Visit: Yes Status: Acute Conclusions/ Impression: Plan: 1. Continue with NG tube to suction 2. Continue with IV fluids 3. Pain control 4. Monitor H&H 5. Repeat abdominal films 6. Appreciate general surgery consultation 7. GI and DVT prophylaxis Critical Care: No Time Spent Managing Pts care (In Minutes): 35
--- NOTE | 2020-10-14 16:09 | P.PN ---
Subjective Date of Service: 10/14/20 Patient appears to be more dehydrated today. Most likely related to 3rd spacing. Fluids are going at 125 cc/hr. His renal function increased. The urine output has diminished. And his blood pressure has been on the low side. Supra therapeutic INR. Given vitamin K and may need FFP. Monitor H&H closely. Patient feels better and NG tube will be clamped. Review of Systems 10-point ROS is otherwise unremarkable Physical Examination - Vital Signs Temperature: 96.4 F Blood Pressure: 103/56 Pulse: 115 Respirations: 18 Pulse Ox (%): 95 - Physical Exam General: Alert, In no apparent distress, Oriented x3 Respiratory: Clear to auscultation bilaterally, Normal air movement Cardiovascular: Regular rate/rhythm, Normal S1 S2, No murmurs Gastrointestinal: Normal bowel sounds, Soft and benign, Distended, Tenderness (Mildly) Musculoskeletal: No clubbing, No tenderness, Swelling Integumentary: No rashes Neurological: Normal speech, Normal tone, Normal affect Lymphatics: No axilla or inguinal lymphadenopathy - Studies Medications List Reviewed: Yes Assessment & Plan - Problems (Diagnosis) (1) Ischemic enteritis Current Visit: Yes Status: Acute (2) S/P small bowel resection Current Visit: Yes Status: Acute (3) Atrial fibrillation Current Visit: Yes Status: Acute (4) CAD (coronary artery disease) Current Visit: Yes Status: Acute (5) DM2 (diabetes mellitus, type 2) Current Visit: Yes Status: Acute (6) HTN (hypertension) Current Visit: Yes Status: Acute (7) Acute renal insufficiency Current Visit: Yes Status: Acute (8) Anemia Current Visit: Yes Status: Acute (9) Warfarin-induced coagulopathy Current Visit: Yes Status: Acute - Plan Plan: 1. Continue with IV fluids and IV fluid boluses 2. Continue sotalol for AFib 3. Hold anti coagulation at this time 4. Hemoglobin has decreased and will repeat H&H 5. Elevated lactic acid and will continue with fluid boluses 6. IV albumin as well to help get the blood pressure up 7. Cardiology consultation for elevated troponin 8. Type and screen for possible transfusion 9. Echocardiogram 10. Renal ultrasound if renal function does not improve 11. GI and DVT prophylaxis - Advance Directives Does patient have a Living Will: No Does patient have a Durable POA for Healthcare: No
[2020-10-14] MEDS ORDERED: VITAMIN K (ADULT) 10 MG/ML SQ SCH (17:00)
[2020-10-14] MEDS ORDERED: Magnesium Sulfate 2gm IVPB 2 G/50 ML BAG IV ONE (17:00)
[2020-10-14 17:21] LABS: Protime INR 6.95
[2020-10-14] MEDS ORDERED: Ringers Lactate 1,000 ML IV ONE (20:03)
[2020-10-15] MEDS: PIPER/TAZO/NS 3.375gm 3.375 GM/100 ML BAG IVPB SCH ×3 (01:06→17:23)
[2020-10-15] MEDS: Ringers Lactate 1,000 ML IV SCH ×5 (01:31→23:01)
[2020-10-15 07:05] LABS: Absolute Lymphocytes (CBC) 2.3 K/uL (0.7-4.9); Basophils % 0.4 % (0-1.3); Lymphocytes % 16.4 % (15.3-44.8); MPV 9.2 fL (7.6-11.3); RBC Red Blood Cell Count 2.38 M/uL (4.33-5.43)
[2020-10-15 07:11] LABS: Albumin 2.8 g/dL (3.4-5.0); Bilirubin Total 0.8 mg/dL (0.2-1.0); Phosphorus 2.3 mg/dL (2.5-4.9); Potassium 4.1 mmol/L (3.5-5.1); Protein, Total 5.5 g/dL (6.4-8.2); Troponin I 0.47 ng/mL (0.0-0.045)
[2020-10-15 07:17] LABS: Hematocrit 20.6 % (39.6-49.0)
--- NOTE | 2020-10-15 07:17 | ECHO ---
HEIGHT: 6 ft 3 in WEIGHT: 250 lb 0 oz DATE OF STUDY: 10/14/[address]: Abby Sanchez MD 2-DIMENSIONAL: YES M.MODE: YES DOPPLER: YES COLOR FLOW: YES TDS: YES PORTABLE: DEFINITY: BUBBLE STUDY: DIAGNOSIS: HYPOTENSION CARDIAC HISTORY: CATHERIZATION: NO SURGERY: YES PROSTHETIC VALVE: NO PACEMAKER: NO MEASUREMENTS (cm) DIASTOLIC (NORMALS) SYSTOLIC (NORMALS) IVSd 1.1 (0.6-1.2) LA Diam 3.1 (1.9-4.0) LVEF 70% LVIDd 2.9 (3.5-5.7) LVIDs 1.8 (2.0-3.5) %FS 38% LVPWd 1.2 (0.6-1.2) Ao Diam 2.9 (2.0-3.7) 2 DIMENSIONAL ASSESSMENT: RIGHT ATRIUM: NORMAL LEFT ATRIUM: NORMAL RIGHT VENTRICLE: NORMAL LEFT VENTRICLE: NORMAL TRICUSPID VALVE: NORMAL MITRAL VALVE: MITRAL ANNULAR CALCIFICATION PULMONIC VALVE: NORMAL AORTIC VALVE: NORMAL PERICARDIAL EFFUSION: NONE AORTIC ROOT: NORMAL LEFT VENTRICULAR WALL MOTION: NORMAL LEFT VENTRICULAR SIZE AND FUNCTION. DOPPLER/COLOR FLOW: MILD TRICUSPID REGURGITATION. NORMAL RIGHT VENTRICULAR SYSTOLIC PRESSURE. COMMENTS: NORMAL LEFT VENTRICULAR SIZE AND FUNCTION. MILD TRICUSPID REGURGITATION. NORMAL RIGHT VENTRICULAR SYSTOLIC PRESSURE. STATUS POST MITRAL VALVE REPAIR - MITRAL ANNULAR CALCIFICATION - NO MITRAL REGURGITATION. TECHNOLOGIST: TROY LITTLEJOHN
[2020-10-15 07:26] LABS: Protime INR 4.01
[2020-10-15] MEDS ORDERED: FUROSEMIDE 20 MG/ 2ML VIAL IV SCH (08:00)
[2020-10-15] MEDS ORDERED: NA CHLORIDE 0.9% 250 ML ONE ×2 (08:52→14:50)
[2020-10-15] MEDS: SOTALOL HCL 80 MG TAB PO SCH ×2 (08:57→22:03)
--- NOTE | 2020-10-15 09:01 | P.PN ---
Subjective Date of Service: 10/15/20 Patient is clinically doing better with no new complaints. Patient's symptoms are improving. Patient is getting up and moving around more. Diet is improved as well. He clinically appears to be better as well. Review of Systems 10-point ROS is otherwise unremarkable Physical Examination - Vital Signs Temperature: 96.4 F Blood Pressure: 103/56 Pulse: 115 Respirations: 18 Pulse Ox (%): 95 - Physical Exam General: Alert, In no apparent distress, Oriented x3 Respiratory: Clear to auscultation bilaterally, Normal air movement Cardiovascular: Regular rate/rhythm, Normal S1 S2, No murmurs Gastrointestinal: Normal bowel sounds, Soft and benign, Distended (Mildly), Tenderness (Minimal) Musculoskeletal: No clubbing, No swelling, No tenderness Integumentary: No rashes Neurological: Normal speech, Normal tone Lymphatics: No axilla or inguinal lymphadenopathy - Studies Medications List Reviewed: Yes Assessment & Plan - Problems (Diagnosis) (1) Ischemic enteritis Current Visit: Yes Status: Acute (2) S/P small bowel resection Current Visit: Yes Status: Acute (3) Atrial fibrillation Current Visit: Yes Status: Acute (4) CAD (coronary artery disease) Current Visit: Yes Status: Acute (5) DM2 (diabetes mellitus, type 2) Current Visit: Yes Status: Acute (6) HTN (hypertension) Current Visit: Yes Status: Acute (7) Acute renal insufficiency Current Visit: Yes Status: Acute (8) Anemia Current Visit: Yes Status: Acute (9) Warfarin-induced coagulopathy Current Visit: Yes Status: Acute - Plan Plan: 1. Patient is feeling much better. Will go ahead and Hep-Lock IV as his diet has increased as well. 2. Continue sotalol for AFib and continue with Lovenox and Coumadin. 3. Patient given transfusion and hemoglobin has stabilized; continue to monitor H&H 4. Continue with physical therapy. Continue out of bed and ambulate 5. Advancing diet as tolerated 6. Patient with flatus and having bowel movements. Continue with monitoring closely 7. GI and DVT prophylaxis Discharge Plan: Home Plan to discharge in: Greater than 2 days - Advance Directives Does patient have a Living Will: No Does patient have a Durable POA for Healthcare: No - Code Status/Comfort Care Code Status Assessed: Yes Code Status: Full Code Critical Care: No Time Spent Managing PTS Care (In Minutes): 45
[2020-10-15] MEDS: PANTOPRAZOLE 40 MG INJ IVP SCH (09:37)
[2020-10-15] MEDS: VITAMIN K (ADULT) 10 MG/ML SQ SCH (09:38)
[2020-10-15] MEDS: HYDROCODONE/APAP 7.5/325 MG TAB PO PRN ×2 (10:14→15:28)
[2020-10-15] MEDS ORDERED: FUROSEMIDE 20 MG/ 2ML VIAL IV ONE ×2 (11:36→19:00)
--- NOTE | 2020-10-15 12:42 | RAD REPORT ---
EXAM DESCRIPTION: RAD - Chest Single View - 10/15/2020 12:25 pm CLINICAL HISTORY: dyspnea Chest pain. COMPARISON: Abdomen 1 View (KUB) dated 10/13/2020; Chest Single View dated 10/13/2020 FINDINGS: Portable technique limits examination quality. The lungs are underinflated resulting in mild vascular crowding. The heart is upper limit normal in s ize with a single lead pacer/defibrillator device. Sternotomy wires are present. IMPRESSION: Underinflated lungs.
--- NOTE | 2020-10-15 12:45 | RAD REPORT ---
EXAM DESCRIPTION: RAD - Abdomen W Erect - 10/15/2020 12:25 pm CLINICAL HISTORY: s/p partial SB resection Pain COMPARISON: Abdomen 1 View (KUB) dated 10/13/2020; Abdomen Pelvis W Contrast dated 10/13/2020 FINDINGS: The stomach appears dilated with air. Multiple dilated small bowel loops are present in th e upper abdomen. Small amount of air is seen in the right colon. The pattern is more typical of mecha nical small-bowel obstruction rather ileus, however follow-up radiographs in 2448 hours would suggest ed. Enteric tube is not clearly identified.
--- NOTE | 2020-10-15 14:07 | P.PN ---
Date of Service: 10/15/20 S: Patient states he just feels tired today. Pain is controlled. Passed some gas per rectum. No appetite at the moment. O: Vital signs are stable, H&H was low and is receiving blood at the moment. Good urine output. Elevated lactate level med receiving IV fluid . A: Surgically stable, medical issues being resolved P: Encouraged to use incentive spirometer.
[2020-10-16 00:36] LABS: Hematocrit 25.2 % (39.6-49.0)
[2020-10-16] MEDS: PIPER/TAZO/NS 3.375gm 3.375 GM/100 ML BAG IVPB SCH ×3 (00:48→16:39)
[2020-10-16] MEDS: Ringers Lactate 1,000 ML IV SCH ×3 (04:00→14:00)
[2020-10-16] MEDS: ONDANSETRON 4 MG/2 ML VIAL IV PRN (05:26)
[2020-10-16 07:06] LABS: Absolute Lymphocytes (CBC) 1.1 K/uL (0.7-4.9); Basophils % 0.1 % (0-1.3); Hematocrit 24.7 % (39.6-49.0); Lymphocytes % 14.1 % (15.3-44.8); MPV 8.7 fL (7.6-11.3); RBC Red Blood Cell Count 2.83 M/uL (4.33-5.43)
[2020-10-16 07:07] LABS: Protime INR 1.3
[2020-10-16 07:31] LABS: ALT/SGPT 111 U/L (12-78); AST/SGOT 84 U/L (15-37); Albumin 2.9 g/dL (3.4-5.0); Alkaline Phosphatase 55 U/L (45-117); BUN Blood Urea Nitrogen 16 mg/dL (7-18); Bicarbonate 30 mmol/L (21-32); Glucose Level 113 mg/dL (74-106); NT PRO-BNP 1436 pg/mL (<125); Phosphorus 1.8 mg/dL (2.5-4.9); Potassium 3.9 mmol/L (3.5-5.1); Protein, Total 6.1 g/dL (6.4-8.2); Sodium Level 138 mmol/L (136-145)
[2020-10-16] MEDS: PANTOPRAZOLE 40 MG INJ IVP SCH (08:29)
[2020-10-16] MEDS: SOTALOL HCL 80 MG TAB PO SCH ×2 (08:30→21:17)
[2020-10-16] MEDS: VITAMIN K (ADULT) 10 MG/ML SQ SCH (09:00)
[2020-10-16] MEDS: Enoxaparin 120 MG/0.8 ML SYR SQ SCH (21:17)
[2020-10-17] MEDS: PIPER/TAZO/NS 3.375gm 3.375 GM/100 ML BAG IVPB SCH ×2 (01:23→09:41)
[2020-10-17] MEDS: Ringers Lactate 1,000 ML IV SCH (01:24)
[2020-10-17 06:16] LABS: Absolute Lymphocytes (CBC) 1.2 K/uL (0.7-4.9); Basophils % 0.3 % (0-1.3); Hematocrit 22.7 % (39.6-49.0); Lymphocytes % 21.5 % (15.3-44.8); RBC Red Blood Cell Count 2.57 M/uL (4.33-5.43)
[2020-10-17 06:30] LABS: BUN Blood Urea Nitrogen 13 mg/dL (7-18); Bicarbonate 30 mmol/L (21-32); Glucose Level 100 mg/dL (74-106); Phosphorus 2.3 mg/dL (2.5-4.9); Potassium 3.5 mmol/L (3.5-5.1); Sodium Level 139 mmol/L (136-145)
[2020-10-17 06:34] LABS: Protime INR 1.21
[2020-10-17] MEDS ORDERED: FUROSEMIDE 20 MG/ 2ML VIAL IV ONE (08:00)
--- NOTE | 2020-10-17 08:37 | P.PN ---
Subjective Date of Service: 10/16/[address] 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 Patient was anemic and was given blood transfusion yesterday. Clinically, he looks to be doing much better overall. His breathing is much better. His pain is better controlled. He is started on a liquid diet and he is tolerating this as well. His abdomen also appears to be less distended. He continues to have adequate bowel movements. Review of Systems 10-point ROS is otherwise unremarkable Physical Examination - Vital Signs Temperature: 98.4 F Blood Pressure: 101/71 Pulse: 74 Respirations: 74 Pulse Ox (%): 95 - Physical Exam General: Alert, In no apparent distress, Oriented x3 Respiratory: Clear to auscultation bilaterally, Normal air movement Cardiovascular: Regular rate/rhythm, Normal S1 S2, No murmurs Gastrointestinal: Hypoactive, Soft and benign, No rebound, No guarding, Disten ded (Mildly distended but much better from yesterday), Tenderness ( appropriately tender postsurgical) Musculoskeletal: No clubbing, No swelling, No tenderness Integumentary: No rashes Neurological: Normal strength at 5/5 x4 extr, Sensation intact, Cranial nerves 3-12 intact - Studies Medications List Reviewed: Yes Assessment & Plan - Problems (Diagnosis) (1) Ischemic enteritis Current Visit: Yes Status: Acute (2) S/P small bowel resection Current Visit: Yes Status: Acute (3) Atrial fibrillation Current Visit: Yes Status: Acute (4) CAD (coronary artery disease) Current Visit: Yes Status: Acute (5) DM2 (diabetes mellitus, type 2) Current Visit: Yes Status: Acute (6) HTN (hypertension) Current Visit: Yes Status: Acute (7) Acute renal insufficiency Current Visit: Yes Status: Acute (8) Anemia Current Visit: Yes Status: Acute (9) Warfarin-induced coagulopathy Current Visit: Yes Status: Acute - Plan Plan: 1. Clinically, patient appears to be doing much better. Will Hep-Lock IV and monitor H&H closely 2. Continue sotalol for AFib 3. Resume Lovenox and Coumadin 4. Monitor H&H closely. Recommendations were to keep INR greater than 4 as patient though was proximal V-tach and his TIAs symptoms. his pathology report also revealed ischemic changes of the small bowel. This caused the patient's small-bowel obstruction. 5. Patient appears to be much improved physically and respiratory jernigan. Continue monitoring his hemodynamics on telemetry and his oxygen saturations closely 6. Started on a clear liquid diet and advancing as tolerated 7. Cardiology consultation appreciated 8. Transfuse him 2 units of packed red blood cells and hemoglobin is stable 9. Echocardiogram did not reveal any significant abnormalities 10. Renal function has returned back to baseline 11. GI and DVT prophylaxis Discharge Plan: Home Plan to discharge in: Greater than 2 days - Advance Directives Does patient have a Living Will: No Does patient have a Durable POA for Healthcare: No - Code Status/Comfort Care Code Status Assessed: Yes Code Status: Full Code Critical Care: No Time Spent Managing PTS Care (In Minutes): 35
[2020-10-17] MEDS: SOTALOL HCL 80 MG TAB PO SCH ×2 (09:42→20:56)
[2020-10-17] MEDS: PANTOPRAZOLE 40 MG INJ IVP SCH (09:44)
[2020-10-17] MEDS: Enoxaparin 120 MG/0.8 ML SYR SQ SCH ×2 (09:48→20:55)
[2020-10-17] MEDS ORDERED: NA CHLORIDE 0.9% 250 ML IV SCH (10:00)
--- NOTE | 2020-10-17 14:44 | P.PN ---
Date of Service: 10/17/20 S: Patient has no specific complaints today. Adjust asking for regular food as he states he is starving. O: Vital signs are stable, adequate urine output. A: Patient is receiving a unit of blood today. He is however surgically stable. P: I will start him on a regular diet today. He has not required any further IV antibiotics. He is to be encouraged to ambulate, uses incentive spirometry. He may shower. Anticipate discharge on Monday.
[2020-10-17 17:33] LABS: Hematocrit 28.1 % (39.6-49.0)
[2020-10-17] MEDS: WARFARIN SODIUM 5 MG TAB PO SCH (20:56)
[2020-10-18 06:00] LABS: Protime INR 1.16
[2020-10-18] MEDS: ONDANSETRON 4 MG/2 ML VIAL IV PRN (06:59)
[2020-10-18] MEDS: Enoxaparin 120 MG/0.8 ML SYR SQ SCH ×2 (09:58→21:42)
[2020-10-18] MEDS: PANTOPRAZOLE 40 MG INJ IVP SCH (09:58)
[2020-10-18] MEDS: SOTALOL HCL 80 MG TAB PO SCH ×2 (09:58→21:42)
[2020-10-18 11:24] LABS: Protime INR 1.19
[2020-10-18 11:35] LABS: ALT/SGPT 65 U/L (12-78); AST/SGOT 44 U/L (15-37); Alkaline Phosphatase 85 U/L (45-117); BUN Blood Urea Nitrogen 11 mg/dL (7-18); Bicarbonate 32 mmol/L (21-32); Bilirubin Total 1.3 mg/dL (0.2-1.0); Glucose Level 113 mg/dL (74-106); Potassium 3.6 mmol/L (3.5-5.1); Protein, Total 6.4 g/dL (6.4-8.2); Sodium Level 142 mmol/L (136-145)
[2020-10-18 11:42] LABS: Absolute Lymphocytes (CBC) 1.7 K/uL (0.7-4.9); Basophils % 0.5 % (0-1.3); Hematocrit 28.6 % (39.6-49.0); MPV 9.4 fL (7.6-11.3); RBC Red Blood Cell Count 3.15 M/uL (4.33-5.43)
[2020-10-18] MEDS: WARFARIN SODIUM 5 MG TAB PO SCH (16:41)
[2020-10-18] MEDS ORDERED: FUROSEMIDE 20 MG/ 2ML VIAL IV ONE (17:28)
--- NOTE | 2020-10-18 17:38 | P.PN ---
Subjective Date of Service: 10/17/20 Patient is clinically doing better with no new complaints. Patient is on anti coagulation and we will continue monitoring INR. Patient with flatus and ambulating well. Continue diet as tolerated. Anticipate discharge home Monday per General surgery. Review of Systems 10-point ROS is otherwise unremarkable Physical Examination - Vital Signs Temperature: 96.4 F Blood Pressure: 103/56 Pulse: 115 Respirations: 18 Pulse Ox (%): 95 - Physical Exam General: Alert, In no apparent distress, Oriented x3 Respiratory: Clear to auscultation bilaterally, Normal air movement Cardiovascular: Regular rate/rhythm, Normal S1 S2, No murmurs Gastrointestinal: Normal bowel sounds, Soft and benign, Non-distended, No rebound, No guarding, Tenderness Musculoskeletal: No clubbing, No swelling, No tenderness Neurological: Sensation intact, Cranial nerves 3-12 intact - Studies Medications List Reviewed: Yes Assessment & Plan - Problems (Diagnosis) (1) Ischemic enteritis Current Visit: Yes Status: Acute (2) S/P small bowel resection Current Visit: Yes Status: Acute (3) Atrial fibrillation Current Visit: Yes Status: Acute (4) CAD (coronary artery disease) Current Visit: Yes Status: Acute (5) DM2 (diabetes mellitus, type 2) Current Visit: Yes Status: Acute (6) HTN (hypertension) Current Visit: Yes Status: Acute - Plan Plan: Continue with plan of care as mentioned below: 1. Hep-Lock IV as his diet has increased as well. Continue diet as tolerated 2. Continue sotalol for AFib and continue with Lovenox and Coumadin. 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 3. Patient given transfusion and hemoglobin has stabilized; continue to monitor H&H 4. Continue with physical therapy. Continue out of bed and ambulate 5. Advancing diet as tolerated 6. Patient with flatus and having bowel movements. Continue with monitoring closely 7. GI and DVT prophylaxis Discharge Plan: Home Plan to discharge in: Greater than 2 days - Advance Directives Does patient have a Living Will: No Does patient have a Durable POA for Healthcare: No - Code Status/Comfort Care Code Status: Full Code Critical Care: No Time Spent Managing PTS Care (In Minutes): 35
--- NOTE | 2020-10-18 17:43 | P.PN ---
Subjective Date of Service: 10/18/20 Patient is clinically doing better with no new complaints. His family brought him Thanksgiving dinner plate and that upset his stomach someone. He is having some mild discomfort but overall his clinical picture appears to be doing better. He has some bruising on the abdomen no signs of active bleeding. H&H is stable. INR is still subtherapeutic. We may stop his Lovenox injections at this time and continue with Coumadin. Review of Systems 10-point ROS is otherwise unremarkable Physical Examination - Vital Signs Temperature: 96.4 F Blood Pressure: 103/56 Pulse: 115 Respirations: 18 Pulse Ox (%): 95 - Physical Exam General: Alert, In no apparent distress, Oriented x3 Respiratory: Clear to auscultation bilaterally, Normal air movement Cardiovascular: Regular rate/rhythm, Normal S1 S2, No murmurs Gastrointestinal: Normal bowel sounds, Soft and benign, Non-distended, No tenderness Musculoskeletal: No clubbing, No swelling, No tenderness Integumentary: No rashes Neurological: Sensation intact, Cranial nerves 3-12 intact - Studies Medications List Reviewed: Yes Assessment & Plan - Problems (Diagnosis) (1) Ischemic enteritis Current Visit: Yes Status: Acute (2) S/P small bowel resection Current Visit: Yes Status: Acute (3) Atrial fibrillation Current Visit: Yes Status: Acute (4) CAD (coronary artery disease) Current Visit: Yes Status: Acute (5) DM2 (diabetes mellitus, type 2) Current Visit: Yes Status: Acute (6) HTN (hypertension) Current Visit: Yes Status: Acute - Plan Plan: Continue with plan of care as mentioned below: 1. Hep-Lock IV as his diet has increased as well. Continue diet as tolerated 2. Continue sotalol for AFib and continue with Lovenox and Coumadin. Patient's skate hop recommending INR close to 4. 3. Hemoglobin stable; continue monitoring H and H 4. Continue with physical therapy. patient ambulating 2 laps around the nurse's station. Physical activity is adequate 5. Advancing diet as tolerated 6. GI and DVT prophylaxis Discharge Plan: Home Plan to discharge in: 24 Hours - Advance Directives Does patient have a Living Will: No Does patient have a Durable POA for Healthcare: No - Code Status/Comfort Care Code Status: Full Code Critical Care: No Time Spent Managing PTS Care (In Minutes): 35
[2020-10-19 05:49] LABS: Absolute Lymphocytes (CBC) 1.6 K/uL (0.7-4.9); Basophils % 0.7 % (0-1.3); Hematocrit 24.4 % (39.6-49.0); Lymphocytes % 19.8 % (15.3-44.8); MPV 8.3 fL (7.6-11.3); RBC Red Blood Cell Count 2.76 M/uL (4.33-5.43)
[2020-10-19 05:52] LABS: Protime INR 1.16
[2020-10-19 06:10] LABS: ALT/SGPT 47 U/L (12-78); AST/SGOT 35 U/L (15-37); Albumin 2.7 g/dL (3.4-5.0); Alkaline Phosphatase 76 U/L (45-117); BUN Blood Urea Nitrogen 12 mg/dL (7-18); Bicarbonate 32 mmol/L (21-32); Bilirubin Total 1.4 mg/dL (0.2-1.0); Glucose Level 101 mg/dL (74-106); Magnesium 1.8 mg/dL (1.8-2.4); Potassium 3.6 mmol/L (3.5-5.1); Protein, Total 5.8 g/dL (6.4-8.2); Sodium Level 139 mmol/L (136-145)
[2020-10-19] MEDS: Enoxaparin 120 MG/0.8 ML SYR SQ SCH (09:19)
[2020-10-19] MEDS: PANTOPRAZOLE 40 MG INJ IVP SCH (09:19)
[2020-10-19] MEDS: SOTALOL HCL 80 MG TAB PO SCH (09:20)
[2020-10-19 10:26] VITALS: O2SAT 98
--- NOTE | 2020-10-19 12:59 | P.PN ---
Subjective Date of Service: 10/19/20 Primary Care Provider: Cardiology-Dr. Leong Chief Complaint: Small-bowel obstruction/ischemic enteritis Physical Examination - Vital Signs Temperature: 98 F Blood Pressure: 115/68 Pulse: 77 Respirations: 18 Pulse Ox (%): 98 - Studies Medications List Reviewed: Yes Assessment & Plan Discharge Plan: Home Plan to discharge in: 24 Hours Physician Review Additional Text: Impression: Ischemic enteritis status post small-bowel resection Atrial fibrillation on chronic anti coagulation CAD DM Type 2 HTN Hyperlipidemia GERD Plan: Ischemic enteritis status post small-bowel resection: Patient tolerating diet. Possible discharge today by surgery. Continue Coumadin and Lovenox until INR be comes near therapeutic. Patient takes Coumadin 5 mg daily. Hospitalist spoke to inbound customer service agent last week. Health And Safety Advisor recommends INR close to 4.0. Will consider discontinuing Lovenox today. Will discuss with surgery about possible discharge. Atrial fibrillation on chronic anti coagulation: Continue sotalol and Coumadin. Monitor INR. Cardiology recommends INR to be around 4. CAD: Continue medication DM Type 2: Hold diabetic medication. Provide sliding scale. Monitor Accu- Cheks. HTN: Hold blood pressure medication at this time due to normal blood pressure. Hyperlipidemia: Continue medication GERD: Continue medication. Time Spent Managing Pts Care (In Minutes): 55
--- NOTE | 2020-10-19 14:18 | P.DS ---
Admission Date: 10/13/20 Discharge Date: 10/19/20 Primary Care Provider: Cardiology-Dr. Leong Disposition: ROUTINE DISCHARGE Discharge Condition: GOOD Reason for Admission: Small-bowel obstruction/ischemic enteritis Consultations: Surgery-Dr. Herrera Procedures: Surgery: Preoperative diagnosis: High-grade obstruction small-bowel Postoperative diagnosis: Vascular compromise of the small bowel Primary procedure: Exploratory laparotomy, small-bowel resection Secondary procedure: With [id number] functional end-to-end anastomosis of small bowel Other procedure(s): Laparoscopy Anesthesia: General Estimated blood loss: Less than 50 cc Specimen: Small-bowel Findings: Vascular compromise of a 14 inch of the small bowel Medical Problem List: High-grade obstruction of the small bowel secondary to Ischemic enteritis status post exploratory laparotomy, small-bowel resection with [id number] functional into and anastomosis of the small bowel Atrial fibrillation on chronic anti coagulation Acute anemia secondary to above CAD DM Type 2 HTN Hyperlipidemia GERD Brief History of Present Illness: 60-year-old male with history of atrial fibrillation on chronic anti coagulation therapy, CAD, diabetes mellitus type 2, hypertension, hyperlipidemia and GERD. Patient presented with abdominal pain. Patient found to have high- grade obstruction of the small bowel secondary to ischemic enteritis. Patient was admitted for further evaluation. Surgery evaluated the patient and recommended surgery. Hospital Course: Patient presented with high grade obstruction of the small bowel. This was related to ischemic enteritis. Patient required emergent surgery. Exploratory laparotomy, small-bowel resection with [id number] functional into and anastomosis of the small bowel was performed. Patient did well post operatively. Patient did require transfusion of blood due to acute anemia. This stabilized. At discharge patient without significant abdominal pain. No nausea vomiting noted. Patient tolerating diet. At discharge patient will follow up with surgery within 1 week to follow up this hospitalization. Postop surgical care to be continued. No heavy lifting, pushing or pulling. Patient should follow up with GI in the near future for colonoscopy. Patient with history of atrial fibrillation on chronic anti coagulation therapy. Patient remains on sotalol 160 mg 1 pill twice daily and Coumadin 5 mg once daily. Cardiology recommends that the patient continue with Coumadin to maintain INR near 4.0 due to ischemic enteritis. Patient will continue with current dosage. Recommend to recheck INR and CBC in the next 2 days. Further adjustment in medication can be done by cardiology. Patient with acute anemia. This is likely related to above. Patient required transfusion. Patient has done well. Recommend to recheck lab-CBC in the next 2 days to further monitor and address. Patient will continue with multi vitamin daily. Patient with diabetes mellitus type 2. This appears stable. At discharge he may continue with Actos 15 mg daily. Recommend to maintain blood sugar less than 140 fasting and less than 200 after meals. Further adjustment can be done by his PCP. Patient with hypertension. Patient takes losartan 50 mg daily and ramipril 10 mg daily. Blood pressures had remained stable off medication during his stay. Recommend to hold off on taking medication. Recommend to monitor blood pressure daily. Recommend to maintain blood pressure less than 130/80. If blood pressure continues to remain elevated he may restart his medications. Hold medication if blood pressure systolic less than 110. Patient with hyperlipidemia. At discharge she may continue with Lipitor 80 mg daily. Patient with GERD. Patient may continue with Protonix 40 mg daily. Vital Signs/Physical Exam: Temp Pulse Resp BP Pulse Ox 98 F 77 18 115/68 98 10/19/20 13:08 10/19/20 13:08 10/19/20 13:08 10/19/20 13:08 10/19/20 13:08 General: Alert, In no apparent distress, Oriented x3, Cooperative HEENT: Atraumatic Neck: Supple Respiratory: Clear to auscultation bilaterally, Normal air movement Cardiovascular: Normal pulses, Regular rate/rhythm Gastrointestinal: Normal bowel sounds, No masses, No rebound, No guarding, Other (Postsurgical changes noted. Some ecchymosis to the abdomen related to Lovenox injections.) Integumentary: No tenderness/swelling, No erythema, No warmth, No cyanosis Neurological: Normal speech, Normal strength at 5/5 x4 extr, Normal tone, Normal affect Laboratory Data at Discharge: WBC 8.0 K/uL (4.3-10.9) 10/19/20 05:40 Hgb 8.5 g/dL (13.6-17.9) L 10/19/20 05:40 Hct 24.4 % (39.6-49.0) L 10/19/20 05:40 Plt Count 173 K/uL (152-406) 10/19/20 05:40 PT Cancelled 10/19/20 07:18 INR Cancelled 10/19/20 07:18 APTT 22.3 SECONDS (24.3-36.9) L 10/16/20 06:49 Sodium 139 mmol/L (136-145) 10/19/20 05:40 Potassium 3.6 mmol/L (3.5-5.1) 10/19/20 05:40 BUN 12 mg/dL (7-18) 10/19/20 05:40 Creatinine 0.71 mg/dL (0.55-1.3) 10/19/20 05:40 Glucose 101 mg/dL (74-106) 10/19/20 05:40 Phosphorus 3.0 mg/dL (2.5-4.9) 10/19/20 05:40 Magnesium 1.8 mg/dL (1.8-2.4) 10/19/20 05:40 Total Bilirubin 1.4 mg/dL (0.2-1.0) H 10/19/20 05:40 AST 35 U/L (15-37) 10/19/20 05:40 ALT 47 U/L (12-78) 10/19/20 05:40 Alkaline Phosphatase 76 U/L (45-117) 10/19/20 05:40 Troponin I 0.47 ng/mL (0.0-0.045) H 10/15/20 06:42 Lipase 61 U/L (73-393) L 10/14/20 03:25 Home Medications: Atorvastatin Calcium [Lipitor] 80 mg PO BEDTIME 10/13/20 Losartan Potassium 50 mg PO BEDTIME 10/13/20 Pantoprazole [Protonix Tab*] 40 mg PO BEDTIME 10/13/20 Pioglitazone [Actos*] 15 mg PO BEDTIME 10/13/20 Sotalol HCl [Sotalol] 160 mg PO BID 10/13/20 Warfarin Sodium 5 mg PO BEDTIME 10/13/20 ramipriL [Ramipril] 10 mg PO DAILY 10/13/20 Multivit with Iron,Minerals [Complete Senior] 1 each PO DAILY #90 tablet 10/19/20 New Medications: Multivit with Iron,Minerals [Complete Senior] 1 each PO DAILY #90 tablet Patient Discharge Instructions: 1. Recommend follow up with PCP in 1 week. 2. Patient presented with high grade obstruction of the small bowel. This was related to ischemic enteritis. Patient required emergent surgery. Exploratory laparotomy, small-bowel resection with [id number] functional into and anastomosis of the small bowel was performed. Patient did well post operatively. Patient did require transfusion of blood due to acute anemia. This stabilized. At discharge patient without significant abdominal pain. No nausea vomiting noted. Patient tolerating diet. At discharge patient will follow up with surgery within 1 week to follow up this hospitalization. Postop surgical care to be continued. No heavy lifting, pushing or pulling. Recommend follow up with GI in the future for future colonoscopy. 3. Patient with history of atrial fibrillation on chronic anti coagulation therapy. Patient remains on sotalol 160 mg 1 pill twice daily and Coumadin 5 mg once daily. Cardiology recommends that the patient continue with Coumadin to maintain INR near 4.0 due to ischemic enteritis. Patient will continue with current dosage. Recommend to recheck INR and CBC in the next 2 days. Further adjustment in medication can be done by cardiology. 4. Patient with acute anemia. This is likely related to above. Patient required transfusion. Patient has done well. Recommend to recheck lab-CBC in the next 2 days to further monitor and address. 5. Patient with diabetes mellitus type 2. This appears stable. At discharge he may continue with Actos 15 mg daily. Recommend to maintain blood sugar less than 140 fasting and less than 200 after meals. Further adjustment can be done by his PCP. 6. Patient with hypertension. Patient takes losartan 50 mg daily and ramipril 10 mg daily. Blood pressures had remained stable off medication during his stay. Recommend to hold off on taking medication. Recommend to monitor blood pressure daily. Recommend to maintain blood pressure less than 130/80. If blood pressure continues to remain elevated he may restart his medications. Hold medication if blood pressure systolic less than 110. 7. Pat ient with hyperlipidemia. At discharge she may continue with Lipitor 80 mg daily. 8. Patient with GERD. Patient may continue with Protonix 40 mg daily. Diet: AHA Activity: No lifting more than 10 lbs Followup: LON VILLALTA [Primary Care Provider] - Time spent managing pt's care (in minutes): 55
--- NOTE | 2020-10-19 14:40 | P.PN ---
Date of Service: 10/19/20 S: Patient feels well today, has been up ambulating, anxious to go home. O: Vital signs are stable, incisions are clean, has been up ambulating in using incentive spirometry. A: Surgically well. May be discharged. PE: Patient will most likely be discharged today. I have discussed in detail the care of his wounds at home. We have discussed diet, showering, ambulating and continue his incentive spirometry. He is white blood understand. They will see me next week. They have my office and my personal cell phone number should they have any questions or problems.
[2020-10-19] MEDS: WARFARIN SODIUM 5 MG TAB PO SCH (16:17)
[2020-10-19 17:29] VITALS: BP 106/70; TEMP 97
[2020-10-19] MEDS ORDERED: PANTOPRAZOLE 40MG TABLET PO SCH (21:00)
[2020-10-19] MEDS ORDERED: ATORVASTATIN 80 MG TAB PO SCH (21:00)
== END 2020-10-19 17:15 | disposition home or self-care (01) | DRG 330 ==
LOC: ER 03:12 → ERHOLD 06:15 → 2ND 16:05
PROVIDERS: ADMIT Surgery; ATTEND Surgery
PROC: 0DB80ZZ Excision of Small Intestine, Open Approach (ICD-10-PCS; principal; 2020-10-13 11:45)
PROC: 30233N1 Transfusion of Nonautologous Red Blood Cells into Peripheral Vein, Percutaneous Approach (ICD-10-PCS; 2020-10-15)
DX: K55.9 Vascular disorder of intestine, unspecified (principal); K46.0 Unspecified abdominal hernia with obstruction, without gangrene; F41.9 Anxiety disorder, unspecified; E11.9 Type 2 diabetes mellitus without complications; I25.10 Atherosclerotic heart disease of native coronary artery without angina pectoris; D64.9 Anemia, unspecified; K21.9 Gastro-esophageal reflux disease without esophagitis; E86.0 Dehydration; E78.5 Hyperlipidemia, unspecified; N28.9 Disorder of kidney and ureter, unspecified; I48.91 Unspecified atrial fibrillation; I10 Essential (primary) hypertension; Z86.73 Personal history of transient ischemic attack (TIA), and cerebral infarction without residual deficits; Z95.810 Presence of automatic (implantable) cardiac defibrillator; Z79.01 Long term (current) use of anticoagulants; Z79.899 Other long term (current) drug therapy; Z20.828 Contact with and (suspected) exposure to other viral communicable diseases
CPT/HCPCS: 36415; 36430; 71045; 74018; 74019; 74177; 80048; 80053; 80076; 82947; 83605; 83690; 83735; 83880; 84100; 84145; 84484; 85014; 85018; 85025; 85044; 85610; 85730; 86850; 86900; 86901; 88305; 88307; 93005; 93306; 94010; 96361; 96374; 96375; 97116; 97161; 97530; 99284; C9113; J0330; J1100; J1170; J1650; J1940; J2175; J2250; J2370; J2405; J2543; J2550; J2704; J2710; J3010; J3430; J3475; J7030; J7040; J7050; J7120; P9016; P9047; Q9967; U0003